=== PATIENT | male | born 1995 | race Caucasian/White ===

== ENCOUNTER 2018-01-02 02:35 | Emergency (ER) | payer BC, OTHER ==
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
[2018-01-02] MEDS ORDERED: CEPHALEXIN 500 MG CAP PO ONE (05:33)
[2018-01-02] MEDS ORDERED: CEPHALEXIN 500MG PREPACK#4 BTL TAKEHOME ONE (05:33)
[2018-01-02 06:26] VITALS: BP 128/71
== END 2018-01-02 07:09 | disposition home or self-care (01) ==
LOC: EDUNIT#
PROC: 0HQFXZZ Repair Right Hand Skin, External Approach (ICD-10-PCS; principal; 2018-01-02)
DX: S61.421A Laceration with foreign body of right hand, initial encounter (principal); F10.920 Alcohol use, unspecified with intoxication, uncomplicated; W25.XXXA Contact with sharp glass, initial encounter; Y92.29 Other specified public building as the place of occurrence of the external cause
CPT/HCPCS: L3925